=== PATIENT | male | born 1935 | race Caucasian/White ===

== ENCOUNTER 2019-02-28 07:26 | Outpatient (CLI) | payer MEDICARE ==
--- NOTE | 2019-02-28 10:44 | CT ---
CT NECK SOFT TISSUES WITH CONTRAST: 02/28/2019 HISTORY: An 83-year-old male with palpable left supraclavicular lymph nodes/fullness. History of prostate ca ncer. FINDINGS: No osteoblastic metastatic lesion is identified involving the cervical spine, mandible, or proximal t wo-thirds of the clavicles included in the field of view. There are sternotomy wires. There is asym metry of the positions of the heads of the right and left first ribs. The head of the right first ri b articulates at a more caudal position with the T1 vertebral body, compared to the vertebrocostal ar ticulation on the contralateral left side, which is more cephalad in position. This results in a lat eral curvature, convex to the right, of the lower cervical spine. This chronic biomechanical asymmet alan stress results in severe degenerative disk disease at C5-C6 and C6-C7; and high-grade facet osteo arthrosis on the left, at C2-C3, C3-C4, and C4-C5. Grade 1 anterolisthesis of C4 on C5 due to the le ft-sided facet osteoarthrosis. 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 There is no supraclavicular lymphadenopathy. There is no cervical lymphadenopathy in general . There is mild asymmetry of the larynx, probably related to the lateral curvature of the cervical s pine. There is heavily calcified and noncalcified atherosclerotic plaque at the distal portion of th e brachiocephalic artery, at its bifurcation, involving the origins of the right subclavian artery an d the right common carotid artery. There is severe stenosis associated with this. The rest of the r ight subclavian artery, the left subclavian artery, and the origin of the left common carotid artery do not demonstrate severe stenosis. There is heavily calcified atheromatous plaque at the left caroti d bulb causing severe stenosis at the origin of the left internal carotid artery. The pharyngeal mucosal, submandibular, parotid, retropharyngeal, perivertebral, pay agent, and poste rior cervical spaces are normal. The thyroid gland is not enlarged. No laryngeal neoplasm identifie d. The lung apices are grossly clear. No destructive osseous lesion. IMPRESSION: 1. 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 2. No cervical lymphadenopathy, and no evidence of malignancy in the neck. 3. Atheromatous plaque causing severe stenosis at the origin of the left internal carotid artery and at the bifurcation of the brachiocephalic artery (at the origins of the right common carotid artery and right subclavian artery). 4. High-grade cervical spondylosis. POS: [facility]
== END 2019-02-28 07:27 | disposition home or self-care (01) ==
LOC: BICCT 07:26
PROVIDERS: ATTEND Radiology Radiation Oncology
DX: R59.0 Localized enlarged lymph nodes (principal); M47.812 Spondylosis without myelopathy or radiculopathy, cervical region; I65.23 Occlusion and stenosis of bilateral carotid arteries; M43.6 Torticollis; I70.8 Atherosclerosis of other arteries; S22.32XK Fracture of one rib, left side, subsequent encounter for fracture with nonunion; Z85.46 Personal history of malignant neoplasm of prostate
CPT/HCPCS: 70491; 82565

== ENCOUNTER 2019-10-23 15:12 | Observation (INO) | payer MEDICARE ==
[2019-10-23 16:15] VITALS: BMI 28.4
--- NOTE | 2019-10-23 17:02 | PDOC.FPRHP ---
- History of Present Illness Chief Complaint: R hand & arm weakness History of Present Illness: Pt is an 84 yo M with history of HTN, prostate cancer with chemo that stopped in July, and pre-diabetic who presents for TIA like symptoms. The patient said on Wednesday he ate supper and he went and sat down in the living room. He said his R hand went numb and after a few minutes his arm went numb also. His family said when he was talking his words were not making sense, so they called 911 and an ambulance brought him to the [place] ER. In the ER, he had two similar events one overnight and one this morning. He states he has headaches, redness in the face, tingling in his hands and around his mouth. ED Course: In the ER, they ordered a cbc that had a low hemoglobin, his cmp showed an elevated 1.7. His UA was cloudy with 100 LE, 21-30 WBC, 3+ Bacteria. US Carotid: Increased Velocity in R carotid and borderline in L MRI Brain: Mod chronic ischemic white matter change, NAF, mucosal opacification of L maxillary CTA Neck: L ICA 40-50% stenosis CTA Head: Mod atherosclerotic calcification in L bulb & proximal L ICA with mild to moderate stenosis in the origin of L ICA R shoulder xray: NAF ECHO: EF 55-60% Mild LAE T, Chol: 162, HDL: 50 - Allergies/Adverse Reactions Allergies Allergy/AdvReac Type Severity Reaction Status Date / Time Penicillins Allergy Verified 10/23/19 16:24 - Home Medications Medication Instructions Recorded Confirmed Type Aspirin [Aspirin EC] 81 mg PO DAILY 10/23/19 10/23/19 History Atorvastatin Calcium 20 mg PO DAILY 10/23/19 10/23/19 History Clopidogrel Bisulfate [Clopidogrel] 75 mg PO DAILY 10/23/19 10/23/19 History Docusate Sodium [Stool Softener] 1 tablet BID 10/23/19 10/23/19 History Metoprolol Succinate 1 tablet DAILY 10/23/19 10/23/19 History Multivit-Min/FA/Lycopen/Lutein 1 tablet DAILY 10/23/19 10/23/19 History [Centrum Silver Men Tablet] Tamsulosin HCl 0.8 mg PO QPM 10/23/19 10/23/19 History metFORMIN HCl [Metformin HCl ER] 500 mg PO DAILY 10/23/19 10/23/19 History - History PMHx: HTN, prostate cancer (finished chemo in July), pre-diabetic, bph PSHx: tonsillectomy, adenoidectomy, CABG x3 vessel, appendectomy, R knee replacement FHx: No hx of stroke in family. Dad-Lung cancer Mom- Lymphoma Brother- Lung cancer Sister- Brain Cancer Social: Tobacco use in his 20s. No alcohol. No recreational drugs. - Review of Systems General: denies: fever/chills ENT: denies: nasal congestion, rhinorrhea Respiratory: denies: congestion, shortness of breath Cardiovascular: denies: chest pain, edema Gastrointestinal: denies: nausea, vomiting Skin: denies: rashes, itching Musculoskeletal: denies: pain, tenderness Neurological: reports: numbness, weakness, other (Headache) - Vital signs BP: 180/83 HR: 78 RR: 18 Tmax: 98.2 Pox: 96% on RA Wt: 83.552 kg - Physical Exam Constitutional: NAD, well developed HEENT: normocephalic and atraumatic, conjunctiva clear, MMM, oropharynx clear, good dention Neck: supple, FROM Heart: RRR, normal S1/S2, no murmurs/rubs/gallops Lungs: CTAB, no respiratory distress, good air movement, no rales/rhonchi, no wheezing, no retractions Abdomen: soft, non-tender, bowel sounds present Musculoskeletal: normal structure, normal tone, ROM grossly normal Neurological: CN II-XII intact, normal sensation -Neurological: + Dysdiadokinesia, Normal Sensation, 5/5 in UE & LE bilaterally, difficult to assess clonus Skin: no rash/lesions Heme/Lymphatic: no unusual bruising or bleeding Psychiatric: normal mood and affect FMR H&P: Results - Labs Result Diagrams: 10/24/19 04:38 10/24/19 04:38 Lab results: As listed in ER records - Radiology Interpretation CT scan - head Status: report reviewed by me (Mod atherosclerotic calcification in L bulb & proximal L ICA with mild to moderate stenosis in the origin of L ICA) Other Status: report reviewed by me Additional comment: US Carotid: Increased Velocity in R carotid and borderline in L MRI Brain: Mod chronic ischemic white matter change, NAF, mucosal opacification of L maxillary CTA Neck: L ICA 40-50% stenosis CTA Head: Mod atherosclerotic calcification in L bulb & proximal L ICA with mild to moderate stenosis in the origin of L ICA R shoulder xray: NAF ECHO: EF 55-60% Mild LAE FMR H&P: A/P - Problem List (1) TIA (transient ischemic attack) Current Visit: Yes Status: Acute Code(s): G45.9 - TRANSIENT CEREBRAL ISCHEMIC ATTACK, UNSPECIFIED (2) Hypertensive urgency Current Visit: Yes Status: Acute Code(s): I16.0 - HYPERTENSIVE URGENCY (3) HTN (hypertension) Current Visit: Yes Status: Acute Code(s): I10 - ESSENTIAL (PRIMARY) HYPERTENSION (4) Pre-diabetes Current Visit: Yes Status: Acute Code(s): R73.03 - PREDIABETES (5) CAD (coronary artery disease) Current Visit: Yes Status: Acute Code(s): I25.10 - ATHSCL HEART DISEASE OF [place] CORONARY ARTERY W/O ANG PCTRS (6) BPH (benign prostatic hyperplasia) Current Visit: Yes Status: Acute Code(s): N40.0 - BENIGN PROSTATIC HYPERPLASIA WITHOUT LOWER URINRY TRACT SYMP - Plan Pt is an 84 yo M with history of HTN, prostate cancer with chemo that stopped in July, and pre-diabetic who presents for TIA like symptoms. 1. TIA R hand & arm weakness, tingling, & numbness * Imaging: * US Carotid: Increased Velocity in R carotid and borderline in L * MRI Brain: Mod chronic ischemic white matter change, NAF, mucosal opacification of L maxillary * CTA Neck: L ICA 40-50% stenosis * CTA Head: Mod atherosclerotic calcification in L bulb & proximal L ICA with mild to moderate stenosis in the origin of L ICA * ECHO: EF 55-60% Mild LAE * Lipid panel showed- T, Chol: 162, HDL: 50 * Atorvastatin increased from 20 mg to 40 mg * ASA 325 mg ordered * Neurology consult placed * Neuro checks * PT/OT consulted * Placed on Telemetry * Will call Dr. Jerry tomorrow to set up [facility] monitor to d/c with 2. HTN Urgency Allowing for permissive HTN for 24 hours * Hydralazine 10 mg IV for BP >220/110 * Metoprolol 25 mg set to restart tomorrow 3. Prediabetes * Continue Home Meds: Metformin * SSI- Mild * Hypoglycemia precautions * QACHS Accuchecks 4. BPH * Home med: Tamuslosin 0.8 mg QHS 5. CABG- 3 vessel * Home med: Plavix continued Code Status: Full Diet: HHLSo Activity: Ambulate with assist, fall precautions DVT PPx: Lovenox, SCDs GI PPx: Famotidine PCP: Dr. Shirley Li Dispo: Stroke obs, LOS < 48H. Will monitor on telemetry overnight and await neurology consultation tomorrow. FMR H&P: Upper Level - Pertinent history 84 y/o M PMHx CAD s/p 4vCABG, HTN, Prostate ca s/p chemo presents as transfer from [facility] for a CVA vs TIA. The patient presented to the [facility] for R arm weakness on Wednesday. He reports he had just been eating dinner and noticed he couldn't make his hand do what he wanted it to do. His family reports incoherent speech at that time. They went to the ED and he was hospitalized. He has been monitored there since Wednesday night, today he started having BL arm tingling and lip tingling as well as R arm weakness and headache. At [facility] he had workup done that included normal CT headx2, CTA head/neck with L ICA 40-55% stenosis, MRI brain normal, R shoulder x-ray normal, Echo 55-60%. He received aspirin 325mg, 1L NS, Tylenol 650mg - Pertinent findings Vitals: BP 204/90, HR 72, Temp 98.5, O2 99% on RA PE: Gen - alert, oriented, NAD HEENT - MMM CV - RRR Neuro - CN II-XII intact, 5/5 strength all 4 extremities, sensation grossly intact, mild slowing of R dysdiadochokinesia Labs: Cr 1.7, trop < 0.017, Triglycerides 119, Chol 162, LDL 88.2, HDL 50 - Plan Date/Time: 10/23/19 1702 I, Luz Beverly MD, PGY-3, have evaluated this patient and agree with findings/ plan as outlined by international coordinator resident. Pertinent changes/additions are listed here. 1. TIA vs CVA Suspect TIA at this point with improving symptoms and negative MRI although pt had a second episode this AM but the family reports the MRI happened after that. -Increase statin to atorvastatin 40mg for high intensity -Continue aspirin, plavix -Consult neurology -Consider discussing possibility of holter monitor for further evaluation -Continue permissive HTN for 24 hours after most recent episode which will be tomorrow morning 2. CAD s/p 4v CABG -Continue home meds 3. HTN BP in 200s systolic at this time, but will continue permissive HTN for 24 hours after most recent ischemic episode, after that will attempt to improve BP control 4. Prostate cancer s/p chemo -Aware Diet: HH VTE ppx: Lovenox Dispo: Obs on stroke, LOS< 48hours Addendum - Attending - Attending Attestation Date/Time: 10/23/19 2200 I personally evaluated the patient and discussed the management with Dr. Orellana and Dr. Beverly I agree with the History, Examination, Assessment and Plan documented above with any addition or exceptions noted below. 84 yo male with hx of CAD, HTN, HLD presents for transfer due to TIA. Patient seen at [facility] facility for right UE weakness, numbness, and speech changes. Workup indicating TIA. MRI only showed chronic small vessel changes. ICA noted to have moderate stenosis. Patient transfered for overnight obs due to recurrent symptoms and neurology evaluation. Will need event monitor to rule out afib at time of d/c. Currently symptoms resolved. Will start BP treatment. Patient has been on ASA and plavix. However, patient is a fall risk and reports he already has easy bruising and bleeding. Would recommend continuing current DAPT with increasing statin dose. Will follow up on neuro recs. ABCD2 score of 5 with 2 day stroke risk of 4.1% and 7 day stroke risk of 5.9%. Oli
[2019-10-23] MEDS ORDERED: Senokot S 8.6-50 MG TAB PO PRN (17:10)
[2019-10-23] MEDS ORDERED: Acetaminophen 325 MG TAB PO PRN (17:10)
[2019-10-23] MEDS ORDERED: hydrALAZINE 20 MG/ML VIAL SLOW IVP PRN (17:10)
[2019-10-23] MEDS ORDERED: Ondansetron ODT 4 MG TAB PO PRN (17:10)
[2019-10-23] MEDS ORDERED: Bisacodyl 5 MG TAB PO PRN (17:10)
[2019-10-23] MEDS ORDERED: Dextrose 5% in Water 1,000 ML IV PRN (17:42)
[2019-10-23] MEDS ORDERED: Dextrose 50% Abboject 50 ML SYRINGE SLOW IVP PRN (17:42)
[2019-10-23] MEDS ORDERED: Insulin Regular 300 UNITS/3 ML VIAL SC PRN (17:42)
[2019-10-23] MEDS: Famotidine 20 MG TAB PO SCH (19:57)
[2019-10-23 20:57] LABS: Bacteria/HPF None Seen HPF (None Seen); Bilirubin Negative (Negative); Blood, Urine Negative (Negative); Clarity Clear (Clear); Glucose, Urine (Dipstick) Normal (Negative); Leukocyte Negative Leu/uL (Negative); Nitrite Negative (Negative); Protein, Urine (Dipstick) 50 mg/dL (Neg-Trace); RBC/HPF 0-3 HPF (0-3); Squamous Epithelial 0-3 HPF (0-3); Urobilinogen Normal mg/dL (Less than 2)
[2019-10-23 21:00] LABS: Urine Culture Reflex Yes Yes
[2019-10-23] MEDS ORDERED: Tamsulosin HCl 0.4 MG CAP PO SCH (21:00)
[2019-10-23] MEDS ORDERED: Atorvastatin Calcium 40 MG TAB PO SCH (21:00)
[2019-10-24 05:46] LABS: #Eosinphils 0.1 thou/uL (0.0-0.7); #Lymphocytes 1.5 thou/uL (1.20-3.40); #Monocytes 0.6 thou/uL (0.11-0.59); #Neutrophils 4.1 thou/uL (1.40-6.50); %Basophils 0.2 % (0.0-1.0); %Eosinophils 1.8 % (0.0-10.0); %Lymphocytes 23.3 % (21.0-51.0); %Monocytes 9.2 % (0.0-10.0); %Neutrophils 65.4 % (42.0-75.0); Hemoglobin 12.4 g/dL (14.0-18.0); Mean Corpuscular HGB CONC 34.1 g/dL (32.0-36.0); Mean Corpuscular Hemoglobin 30.1 pg (27.0-31.0); Mean Corpuscular Volume 88.5 fL (78.0-98.0); Platelet Count 246 thou/uL (130-400); RBC Distribution Width 13.1 % (11.5-14.5); Red Blood Cell (RBC) Count 4.12 mill/uL (4.70-6.10); White Blood Cell (WBC) Count 6.3 thou/uL (4.8-10.8)
[2019-10-24 05:47] LABS: Anion Gap 13 mmol/L (10-20); BUN (Urea Nitrogen) 25 mg/dL (8.4-25.7); Calc. Creatinine Clearance 55 mL/min (70-130); Calcium 9.5 mg/dL (7.8-10.44); Carbon Dioxide 22 mmol/L (23-31); Chloride 107 mmol/L (98-107); Estimated GFR-MDRD 56; Glucose 115 mg/dL (83-110); Potassium 4.1 mmol/L (3.5-5.1); Sodium 138 mmol/L (136-145)
--- NOTE | 2019-10-24 06:04 | PDOC.FM ---
- Subjective Subjective: He says he slept well last night. He ate dinner well last night. He did not have any events similar to the events he had yesterday and today. He had a headache that was occipital and achy last night for 2 hours prior to going to sleep. He said it was gone before he woke up around midnight. - Objective MAR Reviewed: Yes Vital Signs & Weight: Vital Signs (12 hours) Temp Pulse Resp BP BP Pulse Ox 10/23/19 23:08 98 F 74 16 151/61 H 94 L 10/23/19 19:15 98.3 F 72 16 182/92 H 95 Weight Weight 83.552 kg I&O: 10/22/19 10/23/19 10/24/19 06:59 06:59 06:59 Intake Total 725 Output Total 150 Balance 575 Result Diagrams: 10/24/19 04:38 10/24/19 04:38 Phys Exam - Physical Examination Constitutional: NAD HEENT: PERRLA, moist MMs, oral pharynx no lesions Neck: no nodes, supple, full ROM Respiratory: no wheezing, no rales, no rhonchi, clear to auscultation bilateral Cardiovascular: RRR, no significant murmur Gastrointestinal: soft, non-tender, positive bowel sounds Musculoskeletal: no edema, pulses present Neurological: moves all 4 limbs Lymphatic: no nodes Psychiatric: normal affect Skin: no rash Dx/Plan (1) TIA (transient ischemic attack) Code(s): G45.9 - TRANSIENT CEREBRAL ISCHEMIC ATTACK, UNSPECIFIED Status: Acute (2) Hypertensive urgency Code(s): I16.0 - HYPERTENSIVE URGENCY Status: Acute (3) HTN (hypertension) Code(s): I10 - ESSENTIAL (PRIMARY) HYPERTENSION Status: Acute (4) Pre-diabetes Code(s): R73.03 - PREDIABETES Status: Acute (5) CAD (coronary artery disease) Code(s): I25.10 - ATHSCL HEART DISEASE OF [place] CORONARY ARTERY W/O ANG PCTRS Status: Acute (6) BPH (benign prostatic hyperplasia) Code(s): N40.0 - BENIGN PROSTATIC HYPERPLASIA WITHOUT LOWER URINRY TRACT SYMP Status: Acute (7) History of prostate cancer Code(s): Z85.46 - PERSONAL HISTORY OF MALIGNANT NEOPLASM OF PROSTATE Status: Acute - Plan Plan: Pt is an 84 yo M with history of HTN, prostate cancer with chemo that stopped in July, and pre-diabetic who presents for TIA like symptoms. 1. TIA R hand & arm weakness, tingling, & numbness * Imaging: * US Carotid: Increased Velocity in R carotid and borderline in L * MRI Brain: Mod chronic ischemic white matter change, NAF, mucosal opacification of L maxillary * CTA Neck: L ICA 40-50% stenosis * CTA Head: Mod atherosclerotic calcification in L bulb & proximal L ICA with mild to moderate stenosis in the origin of L ICA * ECHO: EF 55-60% Mild LAE * Lipid panel showed- T, Chol: 162, HDL: 50 * Atorvastatin increased from 20 mg to 40 mg * ASA 325 mg ordered * Neurology consulted (10/23), will await recommendations. * Neuro checks * PT/OT consulted * Will call Dr. Jerry today to set up halter monitor to d/c with 2. HTN Urgency Allowing for permissive HTN for 24 hours * Hydralazine 10 mg IV for BP >180 * Metoprolol 25 mg set to restart today 3. Prediabetes * Continue Home Meds: Metformin * SSI- Mild * Hypoglycemia precautions * QACHS Accuchecks 4. BPH * Home med: Tamuslosin 0.8 mg QHS 5. CABG- 3 vessel * Home med: Plavix continued 6. Hx of Prostate Cancer * s/p chemo- Finished 08/01 Code Status: Full Diet: HHLSo Activity: Ambulate with assist, fall precautions DVT PPx: Lovenox, SCDs GI PPx: Famotidine PCP: Dr. Shirley Li Dispo: Stroke obs, LOS < 48H. Awaiting neurology recommendations and oxygen therapist recommendation. Likely d/c today. Addendum - Attending - Attending Attestation Date/Time: 10/24/19 1947 I personally evaluated the patient and discussed the management with Dr. Orellana I agree with the History, Examination, Assessment and Plan documented above with any addition or exceptions noted below. D/C pending neurology recs.
[2019-10-24] MEDS ORDERED: FLU VACC TS2019-20(65YR UP)/PF 180 MCG/0.5 ML SYRINGE IM ONE (09:00)
[2019-10-24] MEDS ORDERED: Enoxaparin Sodium 40 MG/0.4 ML SYRINGE SC SCH (09:00)
[2019-10-24] MEDS ORDERED: Aspirin 325 mg Enteric Coated Tablet PO SCH (09:00)
[2019-10-24] MEDS ORDERED: Multivitamin W/ Minerals 1 TAB PO SCH (09:00)
[2019-10-24] MEDS ORDERED: Prevnar 13-Val Conj/PF 0.5 ML SYRINGE IM ONE (09:00)
[2019-10-24] MEDS ORDERED: metFORMIN XR 500 MG TAB PO SCH (09:00)
[2019-10-24] MEDS ORDERED: Clopidogrel Bisulfate 75 MG TAB PO SCH (09:00)
[2019-10-24] MEDS: Famotidine 20 MG TAB PO SCH (10:16)
[2019-10-24] MEDS ORDERED: hydrALAZINE 20 MG/ML VIAL SLOW IVP PRN (13:30)
[2019-10-24 15:20] VITALS: TEMP 98.9
[2019-10-24 16:18] VITALS: BP 184/88
--- NOTE | 2019-10-24 22:07 | CON ---
DATE OF CONSULTATION: 10/24/2019 CONSULTING PHYSICIAN: Hospitalist Service. IMPRESSION: 1. Transient ischemic attack with transient right upper extremity weakness and dysarthria. 2. Aspirin and Plavix failure. 3. Nonsignificant left carotid stenosis of 40% to 50%. PLAN: 1. Change aspirin and Plavix to Aggrenox one twice a day. 2. Office followup. HISTORY OF PRESENT ILLNESS: Mr. Tobias is an 84-year-old gentleman, who presented to the [facility]. He was complaining of right arm weakness and some slurred speech. His symptoms resolved in the emergency room. CT of the brain was negative. CT angiogram showed some partial stenosis of left internal carotid of 40% to 50%. His echocardiogram showed normal ejection fraction around 50%. He is a patient of Dr. Jerry. He was transferred here due to bed shortage. He had an MRI of the brain done, which did not show any acute ischemic changes. He was taking a statin also prior to admission. PAST MEDICAL HISTORY: Diabetes, hypertension, prostate cancer. ALLERGIES: PENICILLIN. SOCIAL HISTORY: No tobacco or alcohol. FAMILY HISTORY: Noncontributory. REVIEW OF SYSTEMS: Ten-system review of systems is otherwise negative. PHYSICAL EXAMINATION: GENERAL: He is a healthy-appearing gentleman, in no distress. VITAL SIGNS: Have been stable. He is afebrile. HEENT: Pupils are equal and reactive. Conjunctivae clear. Oropharynx clear. NECK: Supple. EXTREMITIES: No cyanosis, clubbing, or edema. NEUROLOGIC: He is alert and appropriate. His speech is fluent and clear. Cranial nerves 2 through 12 are intact. Motor exam showed good tire repairer strength bilaterally. He had no tremor or dysmetria. Sensations intact. No abnormal movements were seen. EKG shows a sinus rhythm. SUMMARY: An 84-year-old gentleman with transient ischemic event. I would switch him over to Aggrenox if it is financially feasible. Job ID: [id number]
[2019-10-25] MEDS ORDERED: Famotidine 20 MG TAB PO SCH (09:00)
[2019-10-25] MEDS ORDERED: Hydrochlorothiazide 25 MG TAB PO SCH (09:00)
--- NOTE | 2019-10-25 13:18 | DIS ---
DATE OF ADMISSION: 10/23/2019 DATE OF DISCHARGE: 10/24/2019 RESIDENT: Bo Orellana MD ADMITTING ATTENDING: Kesha Rice MD DISCHARGE ATTENDING: Jai Mitchell MD CONSULTS: Neurology on 10/23- No further recommendations at this time. PROCEDURES: * Carotid ultrasound showed increased velocity in right carotid and borderline in left. * MRI brain showed moderate chronic ischemia, white matter change. No acute findings. Mucosal opacification of left maxillary. * CTA neck showed left ICA stenosis of 40% to 50% and was unremarkable on the right. * CTA head showed moderate atherosclerotic calcification in left bulb and proximal left ICA with mild to moderate stenosis in the origin of the left ICA. * Right shoulder x-ray showed no acute findings. * Echo performed showed an EF of 55-60%, with mild left atrial enlargement. PRIMARY DIAGNOSES: 1. Transient ischemic attack. 2. Hypertensive urgency. SECONDARY DIAGNOSES: 1. Hypertension. 2. Prediabetes. 3. Coronary artery disease. 4. Benign prostatic hypertrophy. DISCHARGE MEDICATIONS: 1. Atorvastatin was increased from 20 mg to 40 mg. 2. Aspirin 3. Plavix 4. Metoprolol 25 mg. DISCONTINUED MEDICATIONS: 1. Aspirin 325. 2. Dulcolax. 3. Lovenox. 4. Humalog. HISTORY OF PRESENT ILLNESS: The patient is an 84-year-old male with history of hypertension, prostate cancer with chemo that was finished in July and prediabetic, who presents for TIA like symptoms. The patient said on Wednesday, he ate supper and went and sat down in the living room. He said he started to notice his right hand went numb and after a few minutes his whole arm went numb. He felt weak in that arm as well. Family came into the room when he called for help and said that he was making no sense, so they called the ambulance to bring him to the ER. In the ER in [place], he had two similar events, one overnight and one the next morning. He states that he has headaches, redness in the face, tingling in both hands and around his mouth. In the [place] ED, The patient had multiple imaging studies as noted above. He had a CBC that showed low hemoglobin. CMP that showed elevated creatinine of 1.7. UA was dirty, so UA was reperformed here and was negative. Urine culture had no growth at 36 hours. Lipid panel showed triglycerides of 119 , cholesterol 162 and HDL 50. 1. TIA Right hand and arm weakness, tingling and numbness. * Imaging as noted above, as well as lipid panel. * Atorvastatin increased. * Aspirin 325 mg given. * Neurology consulted. * PT/OT consulted. * Dr. Jerry's office called to set up outpatient Holter monitor. 2. Hypertensive urgency * Restarted ajith medication metoprolol 25 mg daily * Blood pressures improved during hospital stay. 3. Prediabetes. * Continue home medication of metformin. 4. BPH. * Home med tamsulosin 0.8 mg at bedtime. 5. CABG, three vessel * Home med Plavix. 6. History of prostate cancer, status post chemo, finished in July 2019. DISCHARGE INSTRUCTIONS: 1. Location: Home. 2. Diet: Diabetic, heart healthy, low-sodium. 3. Activity: As tolerated. 4. Followup: Dr. Jerry in [address] Milton in 7 days. Job ID: [id number] MTDD
== END 2019-10-24 18:16 | disposition home or self-care (01) ==
LOC: UNDOADMIN 15:12 → 2SE 15:12
PROVIDERS: ADMIT Student in an Organized Health Care Education/Training Program; ATTEND Student in an Organized Health Care Education/Training Program
DX: G45.9 Transient cerebral ischemic attack, unspecified (principal); I16.0 Hypertensive urgency; I10 Essential (primary) hypertension; I25.10 Atherosclerotic heart disease of native coronary artery without angina pectoris; N40.0 Benign prostatic hyperplasia without lower urinary tract symptoms; R73.03 Prediabetes; Z79.82 Long term (current) use of aspirin; Z79.84 Long term (current) use of oral hypoglycemic drugs; Z79.899 Other long term (current) drug therapy; Z85.46 Personal history of malignant neoplasm of prostate; Z87.891 Personal history of nicotine dependence; Z88.0 Allergy status to penicillin; Z95.1 Presence of aortocoronary bypass graft
CPT/HCPCS: 80048; 81001; 82962 ×2; 85025; 87086; 90662; 90670; 96372; 97110; 97139 ×4; G0008; G0009; G0378 ×2; 36415; 36416; 90471; J1650

== ENCOUNTER 2020-03-25 07:14 | Outpatient (CLI) | payer MEDICARE, OTHER ==
[2020-03-25 18:15] LABS: INR-International Normal Ratio 0.9; PTT 27.3 sec (22.9-36.1); Prothrombin Time 12.1 sec (12.0-14.7)
[2020-03-25 18:20] LABS: Hemoglobin 12.4 g/dL (14.0-18.0); Mean Corpuscular HGB CONC 34.2 g/dL (32.0-36.0); Mean Corpuscular Hemoglobin 31.5 pg (27.0-31.0); Mean Platelet Volume 7.1 fL (7.4-10.4); Platelet Count 307 thou/uL (130-400); RBC Distribution Width 12.9 % (11.5-14.5); Red Blood Cell (RBC) Count 3.94 mill/uL (4.70-6.10); White Blood Cell (WBC) Count 9.6 thou/uL (4.8-10.8)
[2020-03-25 18:31] LABS: Bilirubin Negative (Negative); Blood, Urine 3+ (Negative); Clarity Turbid (Clear); Glucose, Urine (Dipstick) Normal (Negative); Ketone, Urine Negative (Negative); Leukocyte 250 Leu/uL (Negative); Nitrite Negative (Negative); Protein, Urine (Dipstick) 100 mg/dL (Neg-Trace); RBC/HPF Greater than 50 HPF (0-3); Specific Gravity, Urine 1.023 (1.002-1.036); Squamous Epithelial None Seen HPF (0-3); Urobilinogen Normal mg/dL (Less than 2); WBC/HPF Greater than 50 HPF (0-3); pH, Urine 5.5 (5.0-9.0)
[2020-03-25 18:40] LABS: Bacteria/HPF 1+ HPF (None Seen)
[2020-03-26 11:34] LABS: Anion Gap 19 mmol/L (10-20); BUN (Urea Nitrogen) 35 mg/dL (8.4-25.7); Calc. Creatinine Clearance 0 mL/min (70-130); Calcium 9.7 mg/dL (7.8-10.44); Carbon Dioxide 23 mmol/L (23-31); Chloride 102 mmol/L (98-107); Estimated GFR-MDRD 34; Glucose 117 mg/dL (83-110); Potassium 4.1 mmol/L (3.5-5.1); Sodium 140 mmol/L (136-145)
[2020-03-26 14:02] LABS: SARS-CoV-2 MS2 Positive; SARS-CoV-2 N Gene Negative; SARS-CoV-2 S Gene Negative; SARS-CoV-2 orf1ab Negative
== END 2020-03-25 07:15 | disposition home or self-care (01) ==
LOC: LABBT 07:14
PROVIDERS: ATTEND Urology
DX: Z01.818 Encounter for other preprocedural examination (principal); Z11.59 Encounter for screening for other viral diseases; N40.0 Benign prostatic hyperplasia without lower urinary tract symptoms
CPT/HCPCS: 80048; 81001; 85027; 85610; 85730; 87086; 93005; U0003; 87635; 93010

== ENCOUNTER 2020-03-29 05:55 | Day surgery (SDC) | payer MEDICARE ==
[2020-03-25 13:01] VITALS: BMI 26.1
[2020-03-29] MEDS ORDERED: Levofloxacin 500 mg/D5W 100 ml Premix Bag ONE (06:33)
[2020-03-29] MEDS ORDERED: Fentanyl 100 MCG/2 ML VIAL ONE ×3 (06:51→09:50)
[2020-03-29] MEDS ORDERED: Phenazopyridine HCl 97.5 MG TABLET ONE (09:12)
[2020-03-29] MEDS ORDERED: Oxybutynin 5 MG TAB ONE (09:12)
[2020-03-29] MEDS ORDERED: Ketorolac Tromethamine 30 MG/ML VIAL ONE (09:13)
--- NOTE | 2020-03-29 10:03 | OP ---
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 PROCEDURES PERFORMED: Transurethral vaporization of regrowth adenoma and fulguration of bladder. ANESTHESIA: General. COMPLICATIONS: None. BLOOD LOSS: Minimal. SPECIMEN: None. DESCRIPTION OF PROCEDURE: After informed consent, the patient was taken to the operating room, transferred to the table on his own power. Anesthesia was established. A time-out was performed, showing the correct patient, site, and procedure. Preoperative antibiotics were administered. He was prepped and draped in the lithotomy position. I began by inserting the rigid resectoscope through the urethra noting a normal course and caliber of the urethra into the prostate, noting regrowth adenoma mainly on the left and around the bladder neck. The trigone was also noted to have significant hypervascularity consistent with radiation cystitis. Both ureters were normal in appearance. The remainder of the bladder was unremarkable, other than chronic diverticula mostly on the posterior wall. The PlasmaButton was used to vaporize the regrowth adenoma on the left side and bladder neck. I then used the PlasmaButton to cauterize the radiation cystitis changes of the trigone. At this point, the patient had an excellent anterior channel and no remaining obvious abnormal blood vessels. The bladder was drained, and the prostatic fossa and bladder re-examined, noting no active bleeding. The scope was then withdrawn, and a 22-[place]iber[place] catheter was placed with 30 mL instilled in the balloon. The patient was then awoken from anesthesia, transferred back to his hospital bed and taken to PACU in stable condition, where he will discharge home upon recovery. Job ID: [id number]
[2020-03-29] MEDS ORDERED: hydrALAZINE 20 MG/ML VIAL ONE (11:10)
[2020-03-29] MEDS ORDERED: EPHEDRINE 25 MG/5 ML SYRINGE ONE (11:30)
[2020-03-29] MEDS ORDERED: Dexamethasone 20 MG/5 ML VIAL ONE (11:30)
[2020-03-29] MEDS ORDERED: Lidocaine 1% PF 5 ML VIAL ONE (11:30)
[2020-03-29] MEDS ORDERED: Ondansetron PF 4 MG/2 ML Vial ONE (11:30)
[2020-03-29] MEDS ORDERED: PROPOFOL 200 MG/20 ML VIAL ONE (11:30)
[2020-03-29] MEDS ORDERED: PHENYLEPHRINE-NS 100 MCG/ML 10 ML SYRINGE ONE (11:30)
[2020-03-29] MEDS ORDERED: Glycopyrrolate 0.2 MG/ML 5 ML SYRINGE ONE (11:30)
[2020-03-29 13:43] LABS: #Monocytes 0.1 thou/uL (0.11-0.59); #Neutrophils 4.6 thou/uL (1.40-6.50); %Basophils 0.2 % (0.0-1.0); %Eosinophils 0.3 % (0.0-10.0); %Lymphocytes 16.9 % (21.0-51.0); %Monocytes 2.5 % (0.0-10.0); %Neutrophils 80.2 % (42.0-75.0); Hemoglobin 12.7 g/dL (14.0-18.0); Mean Corpuscular HGB CONC 34.7 g/dL (32.0-36.0); Mean Corpuscular Hemoglobin 30.9 pg (27.0-31.0); Platelet Count 273 thou/uL (130-400); RBC Distribution Width 12.3 % (11.5-14.5); Red Blood Cell (RBC) Count 4.13 mill/uL (4.70-6.10); White Blood Cell (WBC) Count 5.7 thou/uL (4.8-10.8)
[2020-03-29] MEDS ORDERED: Labetalol HCl 100 MG/20 ML VIAL ONE (13:58)
[2020-03-29 14:06] LABS: Anion Gap 19 mmol/L (10-20); BUN (Urea Nitrogen) 30 mg/dL (8.4-25.7); Calc. Creatinine Clearance 36 mL/min (70-130); Calcium 9.9 mg/dL (7.8-10.44); Carbon Dioxide 20 mmol/L (23-31); Chloride 102 mmol/L (98-107); Estimated GFR-MDRD 38; Glucose 149 mg/dL (83-110); Potassium 3.5 mmol/L (3.5-5.1); Sodium 137 mmol/L (136-145)
== END 2020-03-29 15:50 | disposition home or self-care (01) ==
LOC: SDC 05:55
PROVIDERS: ATTEND Urology
PROC: 0V507ZZ Destruction of Prostate, Via Natural or Artificial Opening (ICD-10-PCS; principal; 2020-03-29)
DX: D29.1 Benign neoplasm of prostate (principal); N30.41 Irradiation cystitis with hematuria; N32.3 Diverticulum of bladder; I10 Essential (primary) hypertension; R73.03 Prediabetes; K21.9 Gastro-esophageal reflux disease without esophagitis; Z85.46 Personal history of malignant neoplasm of prostate; Z79.02 Long term (current) use of antithrombotics/antiplatelets; Z79.82 Long term (current) use of aspirin; Z79.84 Long term (current) use of oral hypoglycemic drugs; Z79.899 Other long term (current) drug therapy; Z88.0 Allergy status to penicillin; Z95.1 Presence of aortocoronary bypass graft; Y84.2 Radiological procedure and radiotherapy as the cause of abnormal reaction of the patient, or of later complication, without mention of misadventure at the time of the procedure
CPT/HCPCS: 36415; 80048; 85025; J0360; J1100; J1885; J1956; J2405; J2704; J3010

== ENCOUNTER 2021-01-28 09:50 | Outpatient (CLI) | payer MEDICARE ==
[2021-01-28 12:14] LABS: Hemoglobin 12.7 g/dL (13.5-17.5); Mean Corpuscular Hemoglobin 28.5 pg (27.0-33.0); Mean Platelet Volume 9.9 fl (7.4-10.4); Platelet Count 262 10x3/uL (150-450); RBC Distribution Width 13.3 % (11.5-14.5); Red Blood Cell (RBC) Count 4.46 10x6/uL (4.32-5.72); White Blood Cell (WBC) Count 8.6 10x3/uL (3.5-10.5)
[2021-01-28 13:07] LABS: Anion Gap 15 mmol/L (10-20); BUN (Urea Nitrogen) 35 mg/dL (8.4-25.7); Calc. Creatinine Clearance 0 mL/min (70-130); Calcium 9.5 mg/dL (7.8-10.44); Carbon Dioxide 23 mmol/L (23-31); Chloride 104 mmol/L (98-107); Glucose 100 mg/dL (83-110); Potassium 5.1 mmol/L (3.5-5.1); Sodium 137 mmol/L (136-145)
[2021-01-28 20:26] LABS: SARS-CoV-2 PCR by NAA Not Detected (NotDetected)
== END 2021-01-28 09:51 | disposition home or self-care (01) ==
LOC: LABBT 09:50
PROVIDERS: ATTEND Urology
DX: Z01.818 Encounter for other preprocedural examination (principal); Z20.822 Contact with and (suspected) exposure to COVID-19; N30.00 Acute cystitis without hematuria; N40.1 Benign prostatic hyperplasia with lower urinary tract symptoms; R33.8 Other retention of urine
CPT/HCPCS: 80048; 85027; U0003; U0005; 87635

== ENCOUNTER 2021-02-04 06:09 | Day surgery (SDC) | payer MEDICARE ==
[2021-01-30 10:04] VITALS: BMI 27.0
[2021-02-04] MEDS ORDERED: Levofloxacin 500 mg/D5W 100 ml Premix Bag ONE (06:45)
[2021-02-04] MEDS ORDERED: Morphine 10 MG/ML VIAL ONE (07:16)
[2021-02-04] MEDS ORDERED: Phenylephrine 10 MG/ML VIAL ONE (07:17)
[2021-02-04] MEDS ORDERED: PROPOFOL 40 ML ONE (07:24)
[2021-02-04] MEDS ORDERED: ePHEDrine Sulfate 50 MG/10 ML VIAL ONE (07:34)
[2021-02-04] MEDS ORDERED: PHENYLEPHRINE-NS 100 MCG/ML 10 ML SYRINGE ONE (07:34)
[2021-02-04] MEDS ORDERED: Ketorolac Tromethamine 30 MG/ML VIAL ONE (08:39)
[2021-02-04] MEDS ORDERED: Oxybutynin 5 MG TAB ONE (08:39)
[2021-02-04] MEDS ORDERED: Phenazopyridine HCl 100 MG TAB ONE (08:39)
== END 2021-02-04 10:54 | disposition home or self-care (01) ==
LOC: SDC 06:09
PROVIDERS: ATTEND Urology
PROC: 0T7D8DZ Dilation of Urethra with Intraluminal Device, Via Natural or Artificial Opening Endoscopic (ICD-10-PCS; principal; 2021-02-04)
DX: N40.1 Benign prostatic hyperplasia with lower urinary tract symptoms (principal); N13.8 Other obstructive and reflux uropathy; R33.8 Other retention of urine; N32.89 Other specified disorders of bladder; N30.00 Acute cystitis without hematuria; I10 Essential (primary) hypertension; R73.03 Prediabetes; K21.9 Gastro-esophageal reflux disease without esophagitis; Z85.46 Personal history of malignant neoplasm of prostate; Z79.02 Long term (current) use of antithrombotics/antiplatelets; Z79.2 Long term (current) use of antibiotics; Z79.84 Long term (current) use of oral hypoglycemic drugs; Z79.899 Other long term (current) drug therapy; Z88.0 Allergy status to penicillin; Z88.5 Allergy status to narcotic agent; Z95.1 Presence of aortocoronary bypass graft
CPT/HCPCS: 93005; 93010; J1885; J1956; J2270; J2370; J2704; L8699